=== PATIENT | female | born 1970 | race Asian ===

== ENCOUNTER 2017-12-22 23:43 | Emergency (ER) | payer OTHER ==
[2017-12-22 23:56] VITALS: Ht 154.9 cm
[2017-12-23 04:51] VITALS: BP 112/65
== END 2017-12-23 04:51 | disposition home or self-care (01) ==
LOC: ED 23:43
DX: M43.6 Torticollis (principal); D25.9 Leiomyoma of uterus, unspecified; M32.9 Systemic lupus erythematosus, unspecified

== ENCOUNTER 2018-01-02 21:53 | Emergency (ER) | payer OTHER ==
[2018-01-02 22:04] VITALS: Ht 152.4 cm
[2018-01-02 23:24] VITALS: BP 141/92
== END 2018-01-03 00:04 | disposition home or self-care (01) ==
LOC: ED 21:53
DX: M47.812 Spondylosis without myelopathy or radiculopathy, cervical region (principal)
CPT/HCPCS: J1885

== ENCOUNTER 2018-01-03 12:24 | Emergency (ER) | payer OTHER ==
[~2018-01-03] VITALS: Ht 154.9 cm; Wt 46.3 kg
[2018-01-03 12:39] VITALS: BP 142/100; Ht 154.9 cm; Wt 46.3 kg
== END 2018-01-03 13:30 | disposition home or self-care (01) ==
LOC: ED 12:24
DX: M54.2 Cervicalgia (principal); M25.512 Pain in left shoulder; M25.511 Pain in right shoulder

== ENCOUNTER 2018-12-14 08:25 | Emergency (ER) | payer OTHER ==
[~2018-12-14] VITALS: Ht 152.4 cm; Wt 51.7 kg
[2018-12-14 08:58] VITALS: Ht 152.4 cm; Wt 51.7 kg
[2018-12-14 09:51] LABS: BASOPHIL % 0.5 % (0-2); PLATELET COUNT 225 x10^3mcL (130-400); RED CELL DISTRIBUTION WIDTH 12.2 % (11.5-14.5)
[2018-12-14 09:54] LABS: CALCIUM 7.9 mg/dL (8.5-10.1); CARBON DIOXIDE 31.2 mmol/L (21-32); CHLORIDE SERUM 104 mmol/L (98-107); CREATININE SERUM 0.5 mg/dL (0.6-1.0); GFR1 > 60 mL/min; GLUCOSE SERUM 79 mg/dL (74-106); POTASSIUM SERUM 3.8 mmol/L (3.5-5.1); SODIUM SERUM 143 mmol/L (136-145)
[2018-12-14 09:59] LABS: ALBUMIN 3.5 g/dL (3.4-5.0); ALKALINE PHOSPHATASE 57 U/L (46-116); ALT/SGPT 20 U/L (14-59); AST/SGOT 22 U/L (15-37); BILIRUBIN TOTAL 0.35 mg/dL (0.20-1.00); TOTAL PROTEIN, SERUM 7.6 g/dL (6.4-8.2)
[2018-12-14 12:16] VITALS: BP 152/89
[2018-12-15] MEDS ORDERED: PLAQUENIL200 MG PO (13:13)
[2018-12-15] MEDS ORDERED: PREDNISONE2.5 MG PO (13:15)
== END 2018-12-14 12:17 | disposition home or self-care (01) ==
LOC: ED 08:25
PROVIDERS: Emergency Medicine
DX: B02.8 Zoster with other complications (principal); Z90.711 Acquired absence of uterus with remaining cervical stump
CPT/HCPCS: 36415; J7030; Q9967

== ENCOUNTER 2018-12-15 09:52 | Inpatient (IN) | payer OTHER ==
[~2018-12-15] VITALS: Ht 152.4 cm; Wt 52.8 kg
[2018-12-15 10:00] VITALS: Ht 152.4 cm; Wt 52.8 kg
--- NOTE | 2018-12-15 10:05 | NUR ---
PATIENT STS THAT THEY WHERE HERE YESTERDAY, AND THAT THEY WERE DIAGNOSED WITH SHINGLES. PATIENT STATES THAT SHE IS HERE TODAY BECAUSE SHE FEELS THAT IT IS WORSEN AND NOT GETTING BIGGER. L EYE NOTED TO BE SWOLLEN WITH BLISTER LIKE. PATIENT DENIES N/V/D.
[2018-12-15 11:11] LABS: BASOPHIL % 0.4 % (0-2); PLATELET COUNT 239 x10^3mcL (130-400); RED CELL DISTRIBUTION WIDTH 12.8 % (11.5-14.5)
[2018-12-15 11:19] LABS: CALCIUM 7.5 mg/dL (8.5-10.1); CARBON DIOXIDE 32.8 mmol/L (21-32); CHLORIDE SERUM 102 mmol/L (98-107); CREATININE SERUM 0.6 mg/dL (0.6-1.0); GFR1 > 60 mL/min; GLUCOSE SERUM 88 mg/dL (74-106); POTASSIUM SERUM 3.7 mmol/L (3.5-5.1); SODIUM SERUM 140 mmol/L (136-145)
--- NOTE | 2018-12-15 11:28 | NUR ---
PATIENT IV ACCESS STARTED AT THIS TIME TO LAC. PATENT, AND FLUSHES WELL WITH NO PROBLEMS NOTED.
[2018-12-15] MEDS ORDERED: PLAQUENIL200 MG PO (13:13)
[2018-12-15] MEDS ORDERED: PREDNISONE2.5 MG PO (13:15)
--- NOTE | 2018-12-15 14:14 | NUR ---
REPORT GIVEN TO FILI FRANKLIN AT THIS TIME. ALL QUESTIONS ANSWERED.
--- NOTE | 2018-12-15 14:22 | NUR ---
RECEIVED PHONE REPORT FROM JULIA PENN FOR PATIENT. ADMIT ORDER NOT IN SO PATIENT WILL BE COMMING UP IN ABOUT AN HOUR. ER NURSE STARTED VANCOMYCIN. BLOOD CULTURES TAKEN BEFORE START OF ANTIBIOTICS
--- NOTE | 2018-12-15 14:40 | NUR ---
RECEIVED PT FROM ED VIA WHEELCHAIR, CAME IN DUE TO LEFT FACIAL PAIN W/ BLISTERS X3 DAYS. AAOX4. C/O MILD ACHING HEADACHE. DENIES DIZZINESS. UNABLE TO FULLY OPEN HER LEFT EYE. LEFT EYE IS SWOLLEN AND HAS MILD ERYTHEMA, NO DRAINAGE NOTED. DENIES BLURRY VISION. NO SOB NOTED, LUNG SOUNDS CTA. O2 SAT=97%, RA. DENIES CHEST PAIN/PRESSURE. DENIES ABDOMINAL DISCOMFORT. BOWEL SOUNDS ACTIVE. VOIDS. W/ BLISTERS ON THE LEFT SIDE OF THE FACE AND HAS MILD ERYTHEMA. C/O 8/10 ACHING PAIN AND ITCHINESS ON THE LEFT SIDE OF THE FACE. RECEIVED PT FROM ED W/ VANCOMYCIN ONGOING. IV SITE PATENT AND INTACT. SIDE RAILS UPX2. CALL LIGHT ON REACH. WILL ENDORSE TO PRIMARY NURSE NOEMI FOR CONTINUITY OF CARE
--- NOTE | 2018-12-15 14:43 | NUR ---
PT TRANSPORTED TO MED SURG AT THIS TIME VIA WHEELCHAIR BY MYSELF. PT IS AWAKE AND ALERT, RESP E/U, NAD NOTED. PT VERBALIZED UNDERSTANDING OF PLAN OF CARE PRIOR TO TRANSPORT.
[2018-12-15 14:51] VITALS: BP 135/82
--- NOTE | 2018-12-15 15:20 | NUR ---
TOOK OVER PATIENT CARE OF NEW ADMIT. PATIENT SITTING UP IN BED, A/OX4, FOLLOWING COMMANDS ON ROOM AIR. SWELLING TO LEFT EYE WITH ERYTHEMA PRESENT. PATIENT STATE SHE CANNOT FULLY OPEN LEFT EYE. COMPLAINING OF PAIN 7/10. WELL HEADACHE. IV TO LEFT AC INFUSING VANCOMYCIN WELL, IV MAINTANCE FLUIDS OF NS @80 ATER PIGGYBACK. MEDICATED PATIENT WITH NORCO PRN FOR PAIN, PROVIDED PATIENT WITH CRACKERS, WATER AND SANDWICH. CALL IGHT WITHIN REACH OF PATIENT, WILL CONTINUE TO MONITOR
[2018-12-15 16:41] VITALS: BP 134/77
--- NOTE | 2018-12-15 16:48 | NUR ---
PATIENT AMBULATED WOT RESTROOM WITHOUT ASSIST. STARTED ANTIBIOTIC THERAPY PER MAY. PATIENT STATING SHE WISHES TO REST IN BED. CALL LIGHT WITHIN REACH. PAIN REDUCED TO 2 AT THIS TIME
--- NOTE | 2018-12-15 19:25 | NUR ---
CARE ASSUMED FROM OUTGOING RN. FAMILY AT BEDSIDE. AIRBORNE PRECAUTION IN PLACE. NO ACUTE DISTRESS NOTED. EVEN AND UNLABORED RESPIRATIONS ON RA. MEDSURG PT. IV PATENT AND INTACT RUNNING FLUIDS PER EMAR. C/O LEFT EYE PAIN/DISCOMFORT, ERYTHEMA, BLISTERS AND SWELLING NOTED. BED IN LOWEST POSITION. SIDE RAILS UPX2. CALL LIGHT WITHIN REACH. WILL CONTINUE TO MONITOR.
[2018-12-15 19:41] VITALS: BP 143/85
--- NOTE | 2018-12-16 00:05 | NUR ---
DR. ASCENCIO AT BEDSIDE. PT RESTING COMFORTABLY IN BED. NO ACUTE DISTRESS NOTED. EVEN AND UNLABORED RESPIRATIONS ON RA. IV PATENT AND INTACT RUNNING ANTIBIOTICS PER EMAR. CHANGE IN DOSE MADE FOR ACYCLOVIR PER MD ORDER. AIRBORNE ISOLATION PRECAUTIONS IN PLACE. BED IN LOWEST POSITION. SIDE RAILS UPX2. CALL LIGHT WITHIN REACH. WILL CONTINUE TO MONITOR.
[2018-12-16 04:48] VITALS: BP 136/77
[2018-12-16 06:19] LABS: BASOPHIL % 0.1 % (0-2); PLATELET COUNT 227 x10^3mcL (130-400); RED CELL DISTRIBUTION WIDTH 12.5 % (11.5-14.5)
--- NOTE | 2018-12-16 06:26 | NUR ---
PT SLEPT COMFORTABLY IN INTERVALS THROUGHOUT THE SHIFT. NO ACUTE CHANGES NOTED. ALL NEEDS TENDED TO AND MET. ALL SCHEDULED MEDICATIONS GIVEN. EVEN AND UNLABORED RESPIRATIONS ON RA. IV PATENT AND INTACT RUNNING FLUIDS PER EMAR. AIRBORNE ISOLATION PRECAUTION IN PLACE. ERYTHEMA, BLISTERS AND PERIORBITAL EDEMA NOTED TO LEFT EYE. BED IN LOWEST POSITION. SIDE RAILS UPX2. CALL LIGHT WITHIN REACH. WILL ENDORSE TO ONCOMING SHIFT.
[2018-12-16 06:43] LABS: CALCIUM 7.7 mg/dL (8.5-10.1); CARBON DIOXIDE 28.2 mmol/L (21-32); CHLORIDE SERUM 106 mmol/L (98-107); CREATININE SERUM 0.6 mg/dL (0.6-1.0); GFR1 > 60 mL/min; GLUCOSE SERUM 77 mg/dL (74-106); MAGNESIUM 2.4 mg/dL (1.8-2.4); POTASSIUM SERUM 3.5 mmol/L (3.5-5.1); SODIUM SERUM 142 mmol/L (136-145)
--- NOTE | 2018-12-16 07:21 | NUR ---
RCD REPORT FROM FILI SALGADO. PATIENT IN AIRBORN/CONTACT ISOLATION FOR HERPES ZOSTER TO LEFT FOREHEAD AND PERIORBITAL AREA. PATIENT AWAKE, ALERT, NO DISTRESS NOTED. REPORTS BEING WARM. FILI SALGADO TOK PATIENT'S TEMPERATURE WHICH WAS 100.2 AFTER COOLING MEASURES AND MADE DECISION TO MEDICATE PATIENT WITH TYLENOL PER MAR FOR TEMPERATURE. SHIFT ASSESSMENT PERFORMED AND DOCUMENTED BY DAY NURSE. PT DENIES CHEST PAIN, SHORTNESS OF BREATH, ABDOMINAL PAIN, ANNE-MARIE/VTG/JOSHUA, SYMPTOMS. REPORTS ABLE TO SEE OUT OF LEFT EYE CLEARLY. VESICLES AND REDNESS NOTED TO LEFT FOREHEAD AND PERIORBITAL AREA WITH SOME SWELLING IN THAT AREA. BED LOW, CALL LIGHT WITHIN REACH. ISOLATION PRECAUTIONS MAINTAINED. WILL MONITOR.
--- NOTE | 2018-12-16 08:51 | NUR ---
MEDICATIONS GIVEN PER MAR. PATIENT STILL WITH TEMP 100.8, CONTINUED COOLING MEASURES. PATIENT REPORTS FEELING A LITTLE BETTER. SISTER AT BEDSIDE WITH AIRBORN AND CONTACT PRECAUTIONS, EDUCATED ON REMOVAL UPON LEAVING ROOM. SISTER AGREED VERBALLY.
[2018-12-16 09:07] VITALS: BP 134/73
--- NOTE | 2018-12-16 09:57 | NUR ---
PATIENT GIVEN ANTIVIRAL PER MAY. REFILLED WATER PITCHER PER PATIENT REQUEST, NO ICE. TEMPERATURE 100.6, COOLING MEASURES IN PLACE. WILL CONTINUE TO MONITOR. NO OTHER NEEDS AT THIS TIME.
--- NOTE | 2018-12-16 11:55 | NUR ---
PATIENT ASLEEP, REGULAR RESPS. BED LOW, CALL LIGHT WITHIN REACH. WILL CONTINUE TO MONITOR.
--- NOTE | 2018-12-16 14:39 | NUR ---
MEDICATIONS GIVEN PER MAR. PATIENT GIVEN CLEAN GOWN AND WARM WIPES FOR BED BATH AND ASSISTED CHANGING INTO NEW GOWN. TEMP 99.5. NO OTHER NEEDS AT THIS TIME.
--- NOTE | 2018-12-16 16:29 | NUR ---
PATIENT REPORTING 7/10 PAIN TO HIPS AND LEGS WHEN LYING IN BED. OFFERED PAIN CONTROL PER MAR, PATEINT AGREEABLE FOR [place] AT THIS TIME. WILL MONITOR.
[2018-12-16 17:34] VITALS: BP 125/71
--- NOTE | 2018-12-16 17:48 | NUR ---
PATIENT REPORTS PAIN IS IMPROVED TO HIPS AND LEGS AFTER NORCO, NOW /. PREFERS NOT TO EAT DINNER IT IS UNAPPEALING. OFFERED SANDWICH, BUT REFUSED. AGREES FOR JELLO AND JUICE WHICH WAS PROVIDED TO THE PATIENT X2. NO OTHER NEEDS AT THIS TIME.
--- NOTE | 2018-12-16 19:04 | NUR ---
REPORT GIVEN TO FILI AGUILAR. SISTER AT BEDSIDE. NS 80ML/HR TO LFA WITHOUT COMPLICATIONS. PATIENT REPORTING SHE FEELS SOME SWELLING TO RIGHT SIDE OF FACE NOW WELL LEFT. DENIES DIFFICULTY BREATHING OR SWALLOWING. THIS IS JUST DEVELOPING. FILI AGUILAR, STATES SHE WILL CONTACT PHYSICIAN. OTHERWISE, NO ACUTE DISTRESS. CARE ENDORSED.
--- NOTE | 2018-12-16 19:46 | NUR ---
RECEIVED AWAKE, SITTING AT THE EDGE OF THE BED, WITH RIGHT SIDE OF THE FACE NEW ONSET OF SWELLING BUT DENEIS ANY PAIN/DISCOMFORT. LEFT SIDE OF THE FACE AND WITH PERIORBITAL EDEMA.MANAGER OF PURCHASING. RESPIRATION EVEN AND UNLABORED, IV ACCESS AT THE LFA INTACT AND PATENT WITH IVF NS AT 80ML/HR INFUSING AND TOLERATING WELL. DR GONZALEZ WAS CALLED RE PT'S RIGHT [id number] OD THE FACE NEW ONSET OF SWELLING, AWARING FOR RETURN CALL.
--- NOTE | 2018-12-16 20:36 | NUR ---
PT C/O OF MODERATE PAIN ON THE FACIAL AREA ON SCALE 5/10, NOROC 5/325MG PO GIVEN PRN MEDICATION. ORAL FLUIDS TOLERATED WELL.
--- NOTE | 2018-12-16 20:46 | NUR ---
DR PLASCENCIA CALLED BACK, ORDERED TO CONTINUE CURRENT ANTIBIOTICS ABD CURRENT PLAN OF CARE. PATIENT MADE AWARE .
[2018-12-16 21:40] VITALS: BP 140/86
--- NOTE | 2018-12-17 00:01 | NUR ---
CONTIMUES ON ATB IVPB ORDERED. VICKI DVERSE REACTION NOTED. CALL LIGHT WITHIN REACH.
--- NOTE | 2018-12-17 02:28 | NUR ---
AMBULATED TO BATHROOM FOR PERSONLA NEEDS. KEPT CLEAN AND DRY. CONTINUES ON IVF NS AT 80ML/HR TOLERATING WELL
[2018-12-17 05:00] VITALS: BP 139/84
--- NOTE | 2018-12-17 06:14 | NUR ---
ALL DUE MEDICATIONS GIVEN AND WELL TOLERATED. NO ADVERSE REACTION NOTED FROM ATB THERAPY. ORAL FLUIDS TOLERATED WELL. ALL NEEDS ATTENDED.
--- NOTE | 2018-12-17 07:53 | NUR ---
AAO TIMES 4. MED SURG PATIENT. LUNGS CTA. NO SOB. O2 SAT ON RA 100%. BS'S ACTIVE TIMES 4. ORNELAS STRONG. PERIPHERAL PULSES PALPABLE. NO EDEMA. DENIES PROBLEMS WITH URINATION AND BM'S. AMBULATES BRP WITHOUT DIFFICULTY. SLIGHT EDEMA AND SWELLING BILATERAL JESSY ORIBITALS WITH REDNESS. VESICLE TYPE BLISTERS TO FOREHEAD. AIRBORN ISOLATION. COOPERATIVE.
[2018-12-17 08:45] VITALS: BP 149/80
--- NOTE | 2018-12-17 11:58 | NUR ---
AROUND 1100 DR BOOTH SAW HER, I NOTIFIED HIM THAT SHE IS C/O RIGHT LATERAL THIGH PAIN, AND THAT A RASH IS DEVELOPING ON HER RIGHT GROIN AREA. I ALSO TOLD HIM ABOUT HER BILATERAL SLIGHT JESSY ORBITAL EDEMA. HE ORDERED LIDOCAINE PATCH FOR HER RIGHT LEG PAIN. I APPLIED IT ON HER RIGHT LATERAL THIGH WHERE THE PAIN IS, THE RASH IS HIGHER ON THE RIGHT GROIN AREA.
[2018-12-17 17:55] VITALS: BP 133/79
--- NOTE | 2018-12-17 17:59 | NUR ---
AAO TIMES 4. VESICLES TO HER FORHEAD ARE STARTING TO DRY UP. THE VESICLES ON HER LEFT EYE LID ARE STARTING TO DRY ALSO. THE RASH TO HER RIGHT GROIN AREA HAS NOT GOTTEN WORSE, NO OPEN SORES OR BLISTERS TO HER GROIN. SHE C/O PAIN TO HER RIGHT LEG, I GAVE HER ROXICODONE AT 1706. IV SITE CDI. COOPERATIVE AND PLEASANT.
--- NOTE | 2018-12-17 19:39 | NUR ---
RECEIVED AMBULATING INSIDE THE ROOM , ALERT AND VERBALLLY RESPONSIVE. ABLE TO MAKE NEEDS KNOWN. SKIN WARM AND DRY TO TOUCH, RWSPIRATION EVEN AND UNLLABORED. NO S/S OF ACUTE DISTRESS. WILL CONTINUE TO MONITOR.
[2018-12-17 19:40] VITALS: BP 132/85
--- NOTE | 2018-12-17 22:46 | NUR ---
C/O SEVERE PAIN AT THE ELFT SIDE OF THE FACE AND RIGHT LEG, ROXICODONE 10MG PO GIVEN PRN MEDICATION. TOLERATED ORAL FLUIDS. REPOSITIONED SELF IN BED. WILL CONTINUE TO MONITOR.
--- NOTE | 2018-12-18 01:00 | NUR ---
EYES CLOSED, NO FACIAL GRIAMCING NOTED. RESPIRATION EVEN AND UNLABORED. CONTINUES ON ATB IVPB WITHOUT ADVERSE REACTION NOTED.
[2018-12-18 05:15] VITALS: BP 139/80
--- NOTE | 2018-12-18 06:08 | NUR ---
DUE MEDUCATIONS GIVEN , ORAL FLUIDS TOLERATING WELL. NO S/S OF ASPIRATION NOTED. CALL LIGHT WITHIN REACH. MAINTAINED ON AIRBORNE ISOLATION. KEPT CLEAN AND DRY.
[2018-12-18 06:57] LABS: BASOPHIL % 0.3 % (0-2); PLATELET COUNT 210 x10^3mcL (130-400); RED CELL DISTRIBUTION WIDTH 12.1 % (11.5-14.5)
[2018-12-18 07:06] LABS: ALKALINE PHOSPHATASE 47 U/L (46-116); ALT/SGPT 33 U/L (14-59); AST/SGOT 26 U/L (15-37); BILIRUBIN TOTAL 0.4 mg/dL (0.20-1.00); CALCIUM 7.4 mg/dL (8.5-10.1); CARBON DIOXIDE 26.4 mmol/L (21-32); CHLORIDE SERUM 106 mmol/L (98-107); CREATININE SERUM 0.5 mg/dL (0.6-1.0); GFR1 > 60 mL/min; GLUCOSE SERUM 76 mg/dL (74-106); MAGNESIUM 1.8 mg/dL (1.8-2.4); POTASSIUM SERUM 3.3 mmol/L (3.5-5.1); SODIUM SERUM 141 mmol/L (136-145); TOTAL PROTEIN, SERUM 6.7 g/dL (6.4-8.2)
[2018-12-18 07:16] LABS: ALBUMIN 2.9 g/dL (3.4-5.0)
--- NOTE | 2018-12-18 07:40 | NUR ---
RECEIVED PATIENT RESTING IN BED, NO ACUTE DISTRESS NOTED. PATIENT C/O RIGHT THIGH PAIN 05/29, PATIENT HAS A LIDODERM PATCH DUE, WILL APPLY PATCH AND CONTINUE TO MANAGE PATIENT PAIN. PATIENT IS A/OX4, DENIES HEADACHE, AND DIZZINESS. NO RESPIRATORY DISTRESS NOTED. PATIENT IS AMBULATORY WITH NO ASSIST, NO WEAKNESS NOTED. SLIGHT EDEMA NOTED TO RIGHT PERIORBITOL, WITH VESICULAR RASH TO FOREHEAD. RASH NOTED TO GROIN, GREATER TO RIGHT SIDE. NS IV INFUSING TO LFA AT 80ML/HR, IV SITE CDI & PATENT, NO S/S OF INFILTRATION. PATIENT PLACED ON AIRBORNE PRECAUTION. CALL LIGHT WITHIN REACH, BED IN LOW POSITION, WILL CONTINUE TO MONITOR.
[2018-12-18 08:45] VITALS: BP 158/85
--- NOTE | 2018-12-18 10:30 | NUR ---
DR. BOOTH AWARE PATIENT K WAS 3.3. WILL FOLLOW UP WITH ANY NEW ORDERS.
--- NOTE | 2018-12-18 11:11 | NUR ---
MEDICATIONS GIVEN FOR K REPLACEMENT. PATIENT WAS C/O GENERALIZED PAIN 07/29, MEDICATED PATIENT WITH OXICODONE 5MG PO PER PROTOCOL (SEE EMAR). EDUCATED PATIENT ON PAIN MANAGEMENT, WILL CONTINUE TO MONITOR AND MANAGE PAIN. CALL LIGHT WITHIN REACH.
--- NOTE | 2018-12-18 14:50 | NUR ---
PATIENT SITTING UP IN BED, WATCHING TV. PATIENT STATES SHE HAS SOME DISCOMFORT TO EXTREMITIES, AND IS TOLERABLE. PATIENT INSTRUCTED TO CALL FOR ASSISTANCE IF INCREASE PAIN OCCURS, CALL LIGHT WITHIN REACH. ALL NEEDS MET AT THIS TIME.
[2018-12-18 16:59] VITALS: BP 137/80
--- NOTE | 2018-12-18 18:06 | NUR ---
PATIENT SITTING UP IN BED, NO ACUTE DISTRESS NOTED. PATIENT C/O PAIN TO BLE 08/29, PATIENT STATES SHES ABLE TO TOLERATE PAIN, PATIENT REFUSES PAIN MEDICATIONS. PATIENT ABLE TO RELIEVE PAIN BY STANDING & AND MOVING AROUND. VANCO IV INFUSING TO LFA, NO S/S OF INFILTRATION. CALL LIGHT WITHIN REACH, BED IN LOW POSITION FOR SAFETY PRECAUTION.
--- NOTE | 2018-12-18 19:35 | NUR ---
RECEIVED AWAKE IN BED, ALERT AND ORIENTED , ABLE TO MAKE NEEDS KNOWN. RESPIRATION EVEN AND UNLABORED. SKIN WARM AND DRY TO TOUCH WITH PERIORBITAL REDENSS/EDMA, VISCULAR RAXHES AT THE FOREHEA AND BILATERAL GROINS. DAMILY AT BEDSIDE VERY SUPPORTIVE OF PATIENT'S CURRENT PLAN OF CARE. PLACED CALL LIGHT WITHIN REACH .
[2018-12-18 20:25] VITALS: BP 144/86
--- NOTE | 2018-12-19 00:01 | NUR ---
EYES CLOSED, NO FACIAL GRIMACING NOTRF. RESPIRATION EVEN AND UNLABORED. CALL LIGHT WITHIN REACHED. BED LOCKED AND IN LOWEST POSITION. WILL CONTINUE TO MONOTOR.
[2018-12-19 04:20] VITALS: BP 140/82
--- NOTE | 2018-12-19 05:53 | NUR ---
AMBULATED TO BATHROOM FOR PERSONAL NEEEDS. DUE MEDICATIONS GIVEN AND WELL TOLERATED. NO ADVERSE REACTION NOTED FROM ATB THERAPY. ALL NEEDS ATTENDED.
[2018-12-19 06:26] LABS: BASOPHIL % 0.4 % (0-2); PLATELET COUNT 238 x10^3mcL (130-400); RED CELL DISTRIBUTION WIDTH 12.5 % (11.5-14.5)
[2018-12-19 06:31] LABS: ALKALINE PHOSPHATASE 51 U/L (46-116); ALT/SGPT 36 U/L (14-59); AST/SGOT 23 U/L (15-37); BILIRUBIN TOTAL 0.38 mg/dL (0.20-1.00); CALCIUM 7.7 mg/dL (8.5-10.1); CARBON DIOXIDE 28.8 mmol/L (21-32); CHLORIDE SERUM 107 mmol/L (98-107); CREATININE SERUM 0.5 mg/dL (0.6-1.0); GFR1 > 60 mL/min; GLUCOSE SERUM 77 mg/dL (74-106); MAGNESIUM 2.1 mg/dL (1.8-2.4); POTASSIUM SERUM 3.9 mmol/L (3.5-5.1); SODIUM SERUM 143 mmol/L (136-145); TOTAL PROTEIN, SERUM 6.8 g/dL (6.4-8.2)
[2018-12-19 07:09] LABS: ALBUMIN 2.9 g/dL (3.4-5.0)
--- NOTE | 2018-12-19 07:30 | NUR ---
PT ENDORSE TO ME THIS MORNING, LAYING IN BED RESTING. AA/O X4. BREATHING EVEN AND UNLABORD ON RA, NO ACUTE RESP DISTRESS OR SOB NOTED. REMAINS ON AIRBONE ISOLATION. MEDSURG/ DENIES ANY CP OR PRESSURE. LAST BM 12/17, REG. VOIDS FREELY. AMB. VESICLES PRESENT TO FOREHEAD AND L SIDE OF EYE/ ABDOUL. PERIOBITAL EDEMA NOTED TO L EYE. IV THE LFA AND RAC INTACT AND PATENT/ N0 REDNESS OR SWELLING NOTED/ NS AT 80ML/HR. CALL LIGHT IN REACH. BED IN LOW POSITION. WILL CONTINUE TO MONITIOR.
[2018-12-19 08:49] VITALS: BP 141/92
--- NOTE | 2018-12-19 10:00 | NUR ---
PT C/O NELSON, MEDICATED WITH TYLENOL. WILL CONTINUE TO MONITOR.
--- NOTE | 2018-12-19 16:09 | NUR ---
PT C/O OF R AND L LEG PAIN 08/29, MEDICATED PER EMAR .
[2018-12-19 16:33] VITALS: BP 128/75
[2018-12-19 17:15] VITALS: BP 128/75
--- NOTE | 2018-12-19 18:30 | NUR ---
EXPLAINED DISCHARGE INSTRUCTIONS, NEW AND CONTINUED MEDS AND PRIMARY DOC APPT SHE MUST MAKE, PT AGREED AND SIGNED ALL DOCUMENTS. REMOVED IV TO THE RAC/ CATHETER TIP INTACT. PT STATED HER RIDE WILL ARRIVE IN ONE HR. PENDING DISCAHRGE .
--- NOTE | 2018-12-19 18:40 | NUR ---
WILL ENDORSE TO INCOMING RN. PENDING D/C.
--- NOTE | 2018-12-19 19:07 | NUR ---
PT RIDE ARRIVED. REMOVED ID BAND. NO ACUTE RESP DISTRESS OR SOB NOTED. DENIES ANY DISCOMFORT AT THIS TIME. DISCHARGED.
== END 2018-12-19 19:15 | disposition home or self-care (01) | DRG 383 ==
LOC: ED 09:52 → MU 12:42
PROVIDERS: Internal Medicine Pulmonary Disease; Student in an Organized Health Care Education/Training Program; ADMIT Internal Medicine Pulmonary Disease
DX: L03.213 Periorbital cellulitis (principal); M32.9 Systemic lupus erythematosus, unspecified; B02.30 Zoster ocular disease, unspecified; Z79.52 Long term (current) use of systemic steroids; Z68.22 Body mass index [BMI] 22.0-22.9, adult
CPT/HCPCS: G0378; J0133; J0295; J3370; J3490; J7030